=== PATIENT | female | born 1950 | race Caucasian/White ===

== ENCOUNTER 2017-04-02 12:59 | Outpatient (CLI) | payer MEDICARE ==
--- NOTE | 2017-04-02 16:18 | MMO ---
BILATERAL DIGITAL SCREENING MAMMOGRAMS: Date: 04/02/17 This patient's mammogram was interpreted with the assistance of computer-aided detection. Comparison made with exam of 11/28/13. FINDINGS: There are scattered fibroglandular densities with a few benign calcifications. No suspicious calcifi cations are seen. There is a questionable tiny nodular density in the left retroareolar breast on th e MLO view. IMPRESSION: BIRADS 0: Incomplete: Need Additional Imaging Evaluation and/or Prior Mammograms for Comparison Additional imaging is needed. Recommend direct ML and spot magnification views of the left breast fi nding. An ultrasound would be helpful. The facility will notify the patient of the need for additional imaging services. POS: [facility]
== END 2017-04-02 13:00 | disposition home or self-care (01) ==
LOC: MAMMO 12:59
PROVIDERS: ATTEND Family Medicine
DX: Z12.31 Encounter for screening mammogram for malignant neoplasm of breast (principal)
CPT/HCPCS: 77067; G0202

== ENCOUNTER 2017-04-05 09:49 | Outpatient (CLI) | payer MEDICARE ==
--- NOTE | 2017-04-05 11:22 | MMO ---
LEFT DIAGNOSTIC MAMMOGRAM: Date: 04/05/17 HISTORY: Abnormal mammogram of 04/02/17. FINDINGS: The tiny nodular density in the left retroareolar region appears stable since exam of 2013. IMPRESSION: BIRADS 2: Benign Finding(s) Return to annual mammographic screening. This study was interpreted in consultation with Dr. Jerzy Birch, who concurs. POS: [facility]
== END 2017-04-05 09:50 | disposition home or self-care (01) ==
LOC: MAMMO 09:49
PROVIDERS: ATTEND Family Medicine
DX: Z12.31 Encounter for screening mammogram for malignant neoplasm of breast (principal)
CPT/HCPCS: G0206-LT

== ENCOUNTER 2018-06-12 12:31 | Emergency (ER) | payer MEDICARE ==
--- NOTE | 2018-06-12 14:34 | RAD ---
LEFT KNEE 4 VIEWS: Date: 06/12/18 COMPARISON: None. HISTORY: Fall, trauma, pain. FINDINGS: There is mild medial compartment narrowing with osteophyte formation involving the medial femoral con dyle and medial tibial plateau. No knee joint effusion, displaced fracture, or evidence of dislocation. IMPRESSION: Degenerative joint disease. No acute fracture or dislocation. POS: [facility]
--- NOTE | 2018-06-12 14:48 | RAD ---
FOUR VIEWS LEFT ELBOW: Date: 06-12-18 Comparison: None. History: Fall, trauma, pain. FINDINGS: There is a fracture, dislocation of the left elbow. The proximal left ulna is dislocated posteriorly with respect to the distal humerus. There is an associated displaced comminuted obliquely oriented fr acture of the radial head. IMPRESSION: Fracture dislocation of the left elbow as detailed above. There is a comminuted and displaced radial head fracture. POS: [facility]
[2018-06-12] MEDS ORDERED: Fentanyl 100 MCG/2 ML VIAL ONE (15:07)
[2018-06-12] MEDS ORDERED: Ondansetron PF 4 MG/2 ML Vial ONE (15:07)
[2018-06-12] MEDS ORDERED: KETAMINE 100 MG/ML (5ML VIAL) ONE (15:24)
--- NOTE | 2018-06-12 16:59 | RAD ---
LEFT ELBOW FOUR VIEWS: 06/12/2018 3:01 p.m. HISTORY: Evaluate elbow following reduction. COMPARISON: 06/12/2018 at 12:48 p.m. FINDINGS: Positioning of the patient limits detailed assessment. Previously noted dislocation appears reduced on the lateral view. The radial head fracture is again noted, with mild volar displacement. IMPRESSION: Limited examination secondary to patient positioning. The lateral examination suggests interval redu ction. Displaced radial head fracture again noted. POS: [facility]
== END 2018-06-12 16:48 | disposition home or self-care (01) ==
LOC: ERS 12:31
DX: S52.002A Unspecified fracture of upper end of left ulna, initial encounter for closed fracture (principal); S52.122A Displaced fracture of head of left radius, initial encounter for closed fracture; E78.2 Mixed hyperlipidemia; I10 Essential (primary) hypertension; F41.9 Anxiety disorder, unspecified; Z79.899 Other long term (current) drug therapy; Z79.82 Long term (current) use of aspirin; W19.XXXA Unspecified fall, initial encounter
CPT/HCPCS: 24600; 96374; 96375; 99152; J2405; J3010

== ENCOUNTER 2018-06-18 10:02 | Observation (INO) | payer MEDICARE ==
[2018-06-17 16:12] VITALS: BMI 29.1
[2018-06-18] MEDS ORDERED: CEFAZOLIN 2 GM/50 ML BAG ONE (10:25)
[2018-06-18] MEDS ORDERED: Ondansetron PF 4 MG/2 ML Vial ONE (11:55)
[2018-06-18] MEDS ORDERED: PROPOFOL 200 MG/20 ML VIAL ONE (11:55)
[2018-06-18] MEDS ORDERED: Lidocaine 1% PF 5 ML VIAL ONE (11:55)
[2018-06-18] MEDS ORDERED: Dexamethasone 20 MG/5 ML VIAL ONE (11:55)
[2018-06-18] MEDS ORDERED: Fentanyl 100 MCG/2 ML VIAL ONE ×3 (12:15→14:20)
[2018-06-18] MEDS ORDERED: Meperidine HCl/PF 25 MG/ML VIAL SLOW IVP PRN (13:50)
[2018-06-18] MEDS ORDERED: Promethazine HCl 25 MG/ML VIAL IM/IV PRN (13:50)
[2018-06-18] MEDS ORDERED: HYDROmorphone 2 MG/ML VIAL SLOW IVP PRN (13:50)
--- NOTE | 2018-06-18 14:11 | RAD ---
RADIOGRAPH LEFT ELBOW 2 VIEWS: Date: 06/18/18 HISTORY: 67-year-old female with traumatic fracture of the radial head. COMPARISON: 06/12/18. FINDINGS: These are two small field of view fluoroscopic spot images obtained with C-arm in the OR. The previou sly demonstrated fractured radial head has been resected, and replaced by a metallic prosthesis with a short stem that reaches the proximal diaphysis of the radius. IMPRESSION: Status post arthroplasty of the capitelloradial articulation, with replacement of the radial head wit h a metallic prosthesis. POS: [facility]
[2018-06-18] MEDS ORDERED: Morphine 2 MG/ML SYRINGE IVP PRN (14:32)
[2018-06-18] MEDS ORDERED: traMADol HCl 50 MG TAB PO PRN (14:32)
[2018-06-18] MEDS ORDERED: Ondansetron PF 4 MG/2 ML Vial IV PRN (14:32)
[2018-06-18] MEDS ORDERED: HYDROmorphone 2 MG/ML VIAL ONE (14:33)
[2018-06-18] MEDS ORDERED: Non-Formulary Medication 1 EACH PO PRN (14:42)
[2018-06-18] MEDS ORDERED: CEFAZOLIN/Water 2 GM/20 ML SYRINGE SLOW IVP SCH (14:45)
[2018-06-18] MEDS ORDERED: [UNRECOGNIZED DRUG - REMARK] FS PRN (14:45)
[2018-06-18] MEDS ORDERED: Promethazine HCl 25 MG/ML VIAL ONE (15:31)
[2018-06-18] MEDS: Lisinopril 10 MG TAB PO SCH (20:15)
[2018-06-18] MEDS: CEFAZOLIN 2 GM/50 ML-DEXTROSE 2 GM in Premix Bag 1 BAG IVPB SCH (20:15)
[2018-06-18] MEDS: Metoprolol Tartrate 25 MG TAB PO SCH (20:16)
--- NOTE | 2018-06-18 22:17 | OP ---
DATE OF PROCEDURE: 06/18/2018 PREOPERATIVE DIAGNOSIS: Left radial head and neck fractures. POSTOPERATIVE DIAGNOSIS: Left radial head and neck fractures. PROCEDURE PERFORMED: Left radial head replacement. ANESTHESIA: General. TOURNIQUET TIME: 51 minutes at 250 mmHg. IMPLANTS: Atamasoft Proline system was used with a 20 mm +2 head and an 8.5 mm +2 stem. COMPLICATIONS: None. DRAINS: None. SPECIMEN: Radial head discarded. OUTCOME: Stable radial head replacement. INDICATIONS: The patient is a pleasant 67-year-old lady, status post ground level fall, landing on her outstretched left hand. The patient sustained a posterior elbow dislocation with a comminuted radial head and neck fracture. A successful reduction of the elbow dislocation was obtained in the emergency room; however, she had displacement of the radial head fragment. After discussion with the patient including risks and benefits, we decided to proceed to the operating room for open reduction and internal fixation versus radial head replacement. Informed consent has been obtained and I believe all questions were answered. DESCRIPTION OF PROCEDURE: The patient was brought to the operating room and a time-out was performed followed by induction of general anesthesia. Next, the patient was positioned supine on the OR table and then a sterile prep and drape was performed of left upper extremity. The limb was then exsanguinated with Esmarch bandage, tourniquet inflated to 250 mmHg. Next, a longitudinal incision was made beginning at the lateral epicondyle and heading distally along the posterolateral aspect of the forearm. After skin was sharply incised, dissection was carried down bluntly with incision of the underlying fascia. The interval between the extensor carpi ulnaris and the anconeus were then exploited and blunt dissection carried through this interval down to the joint capsule. The joint capsule was then incised in line with the skin incision revealing the underlying radial head fracture. The radial head was comminuted and significantly displaced more so than one would believe based on the plain films, there was an extruded fragment between the radius and ulna. These free fragments were removed, they were free of any soft tissue attachment. Given the degree of comminution as well as the marginal impaction of the fracture edges, at that point, it was decided to proceed with radial head replacement. As such, the fragments were removed from the elbow and then placed in the sizing jig to determine an appropriate radial head size. Next, an awl was used to obtain access to the intramedullary canal of the proximal ulna, this was followed by progressive T-handle reamers up to a size 8.5, it gave good fit and fill. Next, the size 8.5 reamer was left in place and then the end reamer was passed over this, found to further prepare the proximal ulna. This was then removed and a trial was performed with a 20 mm +2 head and 8.5 mm +2 stem. This gave good presybeterian of length of the radius and the radial head that could be reduced without excessive difficulty and it did not appear to overstuff the elbow. As such, once AP lateral C-arm images were obtained of the trial, it was decided to proceed with insertion of the final implant. The head and stem implants were then fastened to one another using the standard punch and then the head-neck construct was placed in the elbow with just some minor difficulty. Once positioned, the arm was brought through full supination, pronation, flexion and extension without instability. The wound was then thoroughly irrigated with normal saline using bulb syringe, then closed in layers, 0 Vicryl was used for the joint capsule, followed by 0 Vicryl for the fascial layer, 2-0 Vicryl subcutaneously and tameka for the skin. Adaptic gauze, Webril and a posterior fiberglass splint was then applied to the elbow and the tourniquet was let down after completion of dressing. The patient was then transferred to recovery room in stable condition. There were no complications. She tolerated the procedure well. Job ID: [id number]
[2018-06-18] MEDS: HYDROcodone/Acetaminophen 10/325 mg Tablet PO PRN (22:21)
[2018-06-19] MEDS: HYDROcodone/Acetaminophen 10/325 mg Tablet PO PRN ×2 (02:30→07:15)
[2018-06-19] MEDS: CEFAZOLIN 2 GM/50 ML-DEXTROSE 2 GM in Premix Bag 1 BAG IVPB SCH ×2 (02:30→10:26)
[2018-06-19] MEDS: Metoprolol Tartrate 25 MG TAB PO SCH (08:31)
[2018-06-19] MEDS: Lisinopril 10 MG TAB PO SCH (08:32)
[2018-06-19 08:49] VITALS: BP 126/73; TEMP 98.6
[2018-06-19] MEDS ORDERED: Atorvastatin Calcium 40 MG TAB PO SCH (09:00)
[2018-06-19] MEDS ORDERED: Furosemide 20 MG TAB PO SCH (09:00)
[2018-06-19] MEDS ORDERED: Aspirin 325 MG TAB PO SCH (09:00)
[2018-06-19] MEDS ORDERED: Escitalopram Oxalate 10 mg Tablet PO SCH (09:00)
== END 2018-06-19 11:09 | disposition home or self-care (01) ==
LOC: SDC 10:02 → SURG A 14:32
PROVIDERS: ADMIT Orthopaedic Surgery; ATTEND Orthopaedic Surgery
PROC: 0PRJ0JZ Replacement of Left Radius with Synthetic Substitute, Open Approach (ICD-10-PCS; principal; 2018-06-18)
DX: S52.122A Displaced fracture of head of left radius, initial encounter for closed fracture (principal); S52.132A Displaced fracture of neck of left radius, initial encounter for closed fracture; S53.105A Unspecified dislocation of left ulnohumeral joint, initial encounter; I25.10 Atherosclerotic heart disease of native coronary artery without angina pectoris; I10 Essential (primary) hypertension; E78.00 Pure hypercholesterolemia, unspecified; M19.90 Unspecified osteoarthritis, unspecified site; F32.9 Major depressive disorder, single episode, unspecified; Z79.899 Other long term (current) drug therapy; Z88.2 Allergy status to sulfonamides; W18.30XA Fall on same level, unspecified, initial encounter
CPT/HCPCS: 24366; 73080; 76000; 96365; 96366; 96374 ×2; C1713 ×2; G0378; J0131; J1100; J1170; J2001; J2405; J2550; J2704; J3010

== ENCOUNTER 2019-02-14 10:48 | Outpatient (CLI) | payer MEDICARE ==
--- NOTE | 2019-02-14 11:56 | MMO ---
Bilateral MAMMO Bilat Screen [facility]. CLINICAL HISTORY: Patient is 68 years old and is seen for screening. The patient has the following family history of breast cancer: paternal aunt, at age 60, malignant (generic) and cousin female, at age 60, malignant (generic). The patient has no personal history of cancer. VIEWS: The views performed were: bilateral craniocaudal with tomosynthesis and bilateral mediolateral oblique with tomosynthesis. FILMS COMPARED: The present examination has been compared to prior imaging studies performed at [facility] on 03/07/2010, 11/28/2013, 04/02/2017 and 04/06/2017. MAMMOGRAM FINDINGS: There are scattered fibroglandular densities. There are no suspicious masses, suspicious calcifications, or new areas of architectural distortion. IMPRESSION: THERE IS NO MAMMOGRAPHIC EVIDENCE OF MALIGNANCY. A ROUTINE FOLLOW-UP MAMMOGRAM IN 1 YEAR IS RECOMMENDED. THE RESULTS OF THIS EXAM WERE SENT TO THE PATIENT. ACR BI-RADS Category 1 - Negative MAMMOGRAPHY NOTE: 1. A negative mammogram report should not delay a biopsy if a dominant of clinically suspicious mass is present. 2. Approximately 10% to 15% of breast cancers are not detected by mammography. 3. Adenosis and dense breasts may obscure an underlying neoplasm. Reported by: MARK MILLER MD Electonically Signed: [id number]
== END 2019-02-14 10:49 | disposition home or self-care (01) ==
LOC: BICMAMMO 10:48
PROVIDERS: ATTEND Family Medicine
DX: Z12.31 Encounter for screening mammogram for malignant neoplasm of breast (principal); Z80.3 Family history of malignant neoplasm of breast
CPT/HCPCS: 77063; 77067

== ENCOUNTER 2019-03-10 11:02 | Inpatient (IN) | payer MEDICARE ==
[2019-03-10] MEDS ORDERED: Adacel (T-DAP) 0.5 ML SYRINGE ONE (11:29)
[2019-03-10] MEDS ORDERED: Morphine 10 MG/ML VIAL ONE (11:35)
[2019-03-10] MEDS ORDERED: Bupivacaine 0.5% 10 ML VIAL ONE (11:35)
[2019-03-10] MEDS ORDERED: Lidocaine 1% 20 ML MDV ONE (11:35)
--- NOTE | 2019-03-10 11:35 | RAD ---
XR Wrist 3 Rt View STANDARD: 03/10/2019 11:18 AM CLINICAL INDICATION: Fall, pain COMPARISON: None. FINDINGS: Fracture:Comminuted intra-articular distal radial fracture is present. There is associated overriding of distal radial fracture fragments, intra-articular gap of approximat matthew 4-5 mm, and two thirds shaft width anterior displacement of major distal fracture fragment. There is also a comminuted distal ulnar fracture centered at the ulnar styloid. Arthropathy:Scattered mild to moderate osteoarthritis of the right wrist and base of hand. Incidental findings:None of significance. IMPRESSION: 1. Comminuted, intraarticular distal radial fracture. 2. Comminuted distal ulnar fracture.
--- NOTE | 2019-03-10 12:09 | CT ---
CT BRAIN WITHOUT CONTRAST: Date: 03/10/19 INDICATION: History of fall with headache. COMPARISON: Prior CT of the brain dated 09/02/15. FINDINGS: There has been interval development of a very thin-like parafalcine subdural hematoma. The largest po rtion of the collection is seen along the anterior right falx on image 15 of series 2 measuring 4 mm. There are components of the subarachnoid hemorrhage involving sulci of the medial anterior right fro ntal lobe. There is encephalomalacia from the prior intraparenchymal hematoma involving the anterior right frontal lobe. No midline shift is evident. No hydrocephalus is noted. No additional region of h emorrhage is evident. The mastoid air cells are clear. There is an air fluid level in the right maxil eber sinus. The ethmoid air cells and sphenoid sinuses are clear. The frontal sinuses are under pneum atized. The skull is intact. IMPRESSION: 1. Acute parafalcine subdural hematoma with a subarachnoid component seen involving the medial right frontal lobe. There is no evidence of midline shift or focal intraparenchymal contusion. No hydrocep halus is demonstrated. 2. Remote area of encephalomalacia involving the anterior right frontal lobe. Findings called to Dr. Way at 1153 hours on 03/10/19. CODE CR. POS: [facility]
[2019-03-10 12:28] LABS: #Basophils 0.1 thou/uL (0.0-0.2); #Eosinphils 0.1 thou/uL (0.0-0.7); #Lymphocytes 1.7 thou/uL (1.20-3.40); #Monocytes 0.8 thou/uL (0.11-0.59); #Neutrophils 11.4 thou/uL (1.40-6.50); %Basophils 0.5 % (0.0-1.0); %Eosinophils 0.9 % (0.0-10.0); %Lymphocytes 12.2 % (21.0-51.0); %Monocytes 5.6 % (0.0-10.0); %Neutrophils 80.8 % (42.0-75.0); Hemoglobin 14.1 g/dL (12.0-16.0); Mean Corpuscular HGB CONC 33.8 g/dL (32.0-36.0); Mean Corpuscular Hemoglobin 30.7 pg (27.0-31.0); Mean Corpuscular Volume 90.9 fL (78.0-98.0); Mean Platelet Volume 8.2 fL (7.4-10.4); Platelet Count 288 thou/uL (130-400); RBC Distribution Width 11.6 % (11.5-14.5); White Blood Cell (WBC) Count 14.2 thou/uL (4.8-10.8)
[2019-03-10 12:34] LABS: PTT 25.1 SEC (22.9-36.1)
[2019-03-10 12:42] LABS: ALT (SGPT) 26 U/L (8-55); AST (SGOT) 24 U/L (5-34); Albumin 4.3 g/dL (3.4-4.8); Alkaline Phosphatase 95 U/L (40-110); Anion Gap 19 mmol/L (10-20); BUN (Urea Nitrogen) 19 mg/dL (9.8-20.1); Bilirubin, Total 0.5 mg/dL (0.2-1.2); Calc. Creatinine Clearance 0 mL/min (70-130); Calcium 9.6 mg/dL (7.8-10.44); Carbon Dioxide 22 mmol/L (23-31); Chloride 103 mmol/L (98-107); Estimated GFR-MDRD 60; Globulin 2.8 g/dL (2.4-3.5); Glucose 153 mg/dL (80-115); Potassium 5.1 mmol/L (3.5-5.1); Protein, Total 7.1 g/dL (6.0-8.3); Sodium 139 mmol/L (136-145)
--- NOTE | 2019-03-10 13:01 | RAD ---
RIGHT WRIST 3 VIEWS: CLINICAL HISTORY: Post reduction views. FINDINGS: Overlying splint has been placed. Redemonstration of distal radial and ulnar fractures with associate d comminution. There is improved alignment. There remains anterior displacement of the major distal radial fracture fragment. IMPRESSION: Splinted, distal radial and ulnar fractures. Transcribed Date/Time: 03/10/2019 2:05 PM
[2019-03-10 13:11] LABS: Magnesium 1.4 mg/dL (1.6-2.6); Phosphorus 3.5 mg/dL (2.3-4.7)
[2019-03-10] MEDS ORDERED: Bacitracin 1 PK ONE (13:40)
[2019-03-10] MEDS ORDERED: HYDROcodone/Acetaminophen 5/325 mg Tablet ONE (15:57)
[2019-03-10 20:22] VITALS: BMI 27.3
[2019-03-10] MEDS ORDERED: HYDROcodone/Acetaminophen 5/325 mg Tablet PO PRN ×2 (20:37)
[2019-03-10] MEDS ORDERED: Ondansetron ODT 4 MG TAB SL PRN (20:37)
[2019-03-10] MEDS ORDERED: Ondansetron PF 4 MG/2 ML Vial IVP PRN ×2 (20:37→20:40)
[2019-03-10] MEDS ORDERED: Insulin Regular 300 UNITS/3 ML VIAL SC PRN (20:40)
[2019-03-10] MEDS ORDERED: Dextrose 50% Abboject 50 ML SYRINGE SLOW IVP PRN (20:40)
[2019-03-10] MEDS ORDERED: hydrALAZINE 20 MG/ML VIAL SLOW IVP PRN (20:40)
[2019-03-10] MEDS ORDERED: Dextrose 5% in Water 1,000 ML IV PRN (20:40)
[2019-03-10] MEDS ORDERED: Dextrose 5 %-0.45 % NaCl 1,000 ML IV SCH (20:45)
[2019-03-10] MEDS ORDERED: Magnesium 2 GM/50 ML 2 GM in Premix Bag 1 BAG IVPB SCH (21:00)
[2019-03-10] MEDS: traMADol HCl 50 MG TAB PO PRN (21:52)
[2019-03-10] MEDS: Famotidine/PF 20 mg/2ml Vial SLOW IVP SCH (21:53)
[2019-03-10] MEDS: Metoprolol Tartrate 25 MG TAB PO SCH (21:53)
[2019-03-10] MEDS: Lisinopril 10 MG TAB PO SCH (21:53)
[2019-03-10] MEDS: Sodium Chloride 0.9% 1,000 ML IV SCH (21:54)
[2019-03-10] MEDS: Senokot S 8.6-50 MG TAB PO SCH (21:54)
[2019-03-11] MEDS: Acetaminophen 1,000 MG in Premix Bag 1 BAG IVPB SCH ×3 (00:18→14:02)
--- NOTE | 2019-03-11 01:11 | HP ---
CONSULTS: 1. Neurosurgery, Dr. Ruiz. 2. Orthopedic Surgery, Dr. Alfaro. HISTORY OF PRESENT ILLNESS: This is a 68-year-old lady, who was at home this morning working in her flower beds when she lost her balance while she was bending down causing her to fall forward onto her face. The patient states that she attempted to catch herself and also landed on her right wrist. The patient reported immediate facial pain and right arm pain. The patient denies any chest pain, dizziness, shortness of breath prior to falling. The patient does report a recent cold, in which she has been taking Tylenol. The patient denies any loss of consciousness, reports full recall of events. The patient's forest fire control officer is Dr. Tucker, the patient states she had an echocardiogram over a year ago. The patient was given a Tdap in the ER. REVIEW OF SYSTEMS: A 10-point review of systems is negative unless otherwise indicated in the above HPI. PAST MEDICAL HISTORY: GI bleed, brain bleed while on Coumadin for an aortic valve replacement, type 2 diabetes, hypertension, CVA, coronary artery disease. SURGICAL HISTORY: Aortic valve replacement in 2010 and also 2016, hysterectomy. SOCIAL HISTORY: Denies a history of tobacco use, reports occasional alcohol use once a month. Denies any illicit drug use. ALLERGIES: SULFA. CURRENT MEDICATIONS: 1. Atorvastatin 40 mg p.o. daily. 2. Escitalopram 10 mg daily. 3. Furosemide 20 mg daily. 4. [place] 10/325 p.r.n. 5. Metformin 500 mg q.p.m. with meals and 1000 mg p.o. q.a.m. with meals. 6. Omeprazole 20 mg p.o. q.a.m. 7. Aspirin 325 mg p.o. daily. 8. Lisinopril 10 mg b.i.d. 9. Metoprolol 25 mg p.o. b.i.d. PHYSICAL EXAMINATION: VITAL SIGNS: Blood pressure 146/78, pulse 63, SpO2 96% on room air, respirations 17, temperature 97.5. GENERAL: Well-appearing elderly female, lying in hospital bed, in no acute distress. HEENT: Head is normocephalic, abrasions to forehead, superficial small lacerations to forehead repaired with Dermabond, right cheek abrasion, ecchymoses to chin. Mucous membranes are moist, trachea midline. No cervical spine tenderness. Normal range of motion. No facial deformity. Pupils equal bilateral at 4 mm. RESPIRATORY: Equal chest rise and fall, respirations even nonlabored, bilateral breath sounds clear with no wheezing, rales, or rhonchi. CARDIAC: Regular rate, regular rhythm, positive click noted. No murmurs. ABDOMEN: Soft, nontender, nondistended, pelvis stable. EXTREMITIES: Moves all extremities, gross motor function intact, distal pulses 2+ in all extremities. Right upper extremity immobilized in a splint. NEUROLOGIC: GCS 15, cranial nerves intact, strength 5/5. LABORATORY DATA: WBC 14.2, RBC 4.60, hemoglobin 14.1, hematocrit 41.8, platelets 288. Sodium 139, potassium 5.1, chloride 103, BUN 19, creatinine 0.93, estimated GFR 60, glucose 153, calcium 9.6, phosphorus 3.5, magnesium 1.4. DIAGNOSTIC STUDIES: 1. Right wrist x-ray; comminuted intra-articular distal radial fracture and comminuted distal ulnar fracture. 2. Brain CT, acute parafalcine subdural hematoma with a subarachnoid component seen involving the medial right frontal lobe. No evidence of midline shift or focal intraparenchymal contusion. No hydrocephalus is demonstrated. ASSESSMENT: 1. Status post mechanical fall. 2. Right frontal subdural hematoma and subarachnoid. 3. Right distal radius and ulnar fracture, splinted. 4. Hypomagnesemia. 5. History of aortic valve replacement, gastrointestinal bleed, cerebrovascular accident, diabetes type 2, hypertension. PLAN: Admit to the intermediate care unit. The patient will be n.p.o. over midnight. Neurosurgery has evaluated the patient, pending recommendations. We will keep systolic blood pressure less than 150. Q.1 hour neuro checks. Repeat head CT in am. If mentation remained stable, the patient possibly going to the OR with Dr. Alfaro for repair of right wrist fracture. We will hold patient's aspirin. We will place the patient on mechanical DVT prophylaxis with SCDs. The plan was discussed with the patient who agrees. PT/OT. Job ID: [id number] MTDD
[2019-03-11] MEDS: traMADol HCl 50 MG TAB PO PRN (03:08)
[2019-03-11] MEDS: Sodium Chloride 0.9% 1,000 ML IV SCH ×2 (05:51→17:36)
[2019-03-11 06:01] LABS: #Eosinphils 0.1 thou/uL (0.0-0.7); #Lymphocytes 2.4 thou/uL (1.20-3.40); #Monocytes 0.7 thou/uL (0.11-0.59); %Basophils 0.5 % (0.0-1.0); %Eosinophils 1.2 % (0.0-10.0); %Lymphocytes 33.4 % (21.0-51.0); %Monocytes 9.6 % (0.0-10.0); %Neutrophils 55.3 % (42.0-75.0); Hemoglobin 12.6 g/dL (12.0-16.0); Mean Corpuscular HGB CONC 33.3 g/dL (32.0-36.0); Mean Corpuscular Volume 93.1 fL (78.0-98.0); Mean Platelet Volume 7.6 fL (7.4-10.4); Platelet Count 257 thou/uL (130-400); RBC Distribution Width 11.4 % (11.5-14.5); Red Blood Cell (RBC) Count 4.07 mill/uL (4.20-5.40); White Blood Cell (WBC) Count 7.2 thou/uL (4.8-10.8)
[2019-03-11 06:19] LABS: Phosphorus 3.3 mg/dL (2.3-4.7)
[2019-03-11 06:21] LABS: Anion Gap 11 mmol/L (10-20); BUN (Urea Nitrogen) 13 mg/dL (9.8-20.1); Calc. Creatinine Clearance 91 mL/min (70-130); Calcium 8.8 mg/dL (7.8-10.44); Carbon Dioxide 28 mmol/L (23-31); Chloride 102 mmol/L (98-107); Estimated GFR-MDRD 84; Glucose 106 mg/dL (80-115); Magnesium 2.2 mg/dL (1.6-2.6); Sodium 137 mmol/L (136-145)
--- NOTE | 2019-03-11 07:14 | CON ---
DATE OF CONSULTATION: HISTORY OF PRESENT ILLNESS: Ms. Crocker is a very pleasant 68-year-old woman who this morning was in her garden when she stepped out onto which she describes as an uneven surface. She lost her balance and fell, landing on her face and outstretched right arm. This resulted in a right wrist fracture, which upon my arrival at the emergency department is already splinted as well as some minor facial abrasions Of note Neurosurgery was consulted for CT scan of the head reveals subarachnoid hemorrhage in the bilateral frontal lobes as well as a small area of what appears to be parafalcine subdural hematoma which is rather small in nature and does not apply any significant mass effect to the underlying brain parenchyma. She is on a 325 mg aspirin daily as she has an artificial heart valve, but otherwise appears to be in very good state of health. PHYSICAL EXAMINATION: GENERAL: The patient is alert and oriented x4, she understands but feels the sequence of all events that happened this morning when I was present. HEENT: Pupils are equal, round, and reactive to light. Extraocular movements are intact. EXTREMITIES: Left upper extremity motor exam is normal. Right is deferred secondary to splinting for fracture. Bilateral lower extremity motor exam is normal. ASSESSMENT: Subarachnoid hemorrhage, status post fall with closed head injury. Neurosurgery's plan for this patient is one of just observation and repeat CT scan in the morning. She has an excellent prognosis, appears very well and would likely be the patient to be watched on the Med-Surg floor from our perspective, but we will defer to our colleagues in trauma who will be admitting. She will need to hold her aspirin for the next 72 hours and may restart. We will plan to follow up more than likely the next 3-6 weeks in our clinic. Job ID: [id number]
[2019-03-11] MEDS ORDERED: CEFAZOLIN 2 GM in Premix Bag 1 BAG IVPB SCH (07:45)
--- NOTE | 2019-03-11 07:51 | CT ---
PRELIMINARY REPORT/[facility]/EMERGENCY AFTER HOURS PROCEDURE: Addendum created by Tod Bellamy MD on 03/11/2019 6:20 AM Central Time ([place] & [place]) CT report dated 03/10/19 submitted. Anterior parafalcine subdural hematoma is apparently smaller, fito uring 2 mm or less, previously reported at 4 mm. Subarachnoid hemorrhage was previously reported. Addendum created by Tod Bellamy MD on 03/11/2019 6:02 AM Central Time ([place] & [place]) Minimal linear h yperdensity along the right frontal lobe encephalomalacia appears to be cortical suggestive of calcif ication. The findings were verbally communicated via telephone conference with HOUSTON MACHADO at 6:01 AM CDT on . Initial Report created on 03/11/2019 5:54 AM Central Time ([place] & [place]) PROCEDURE INFORMATION: Exam: CT Head without contrast Exam date and time: 03/11/2019 5:31 AM Clinical history: 68 years old, female; Injury or trauma; Fall; Follow-up exam; Blunt trauma (contusi ons or hematomas); Patient HX: F/u sdh, sah; Additional info: Unable to send prior images as they wer e done at a different facility, but report has been faxed. TECHNIQUE: Imaging protocol: Computed tomography of the head without contrast. COMPARISON: No relevant prior studies available. FINDINGS: Brain: Area of encephalomalacia in the right anterior frontal lobe. Minimal asymmetric hyperdense thi ckening of the anterior falx. Small amount of sulcal hyperdensity in the parafalcine frontal lobe on the right. Otherwise unremarkable. Ventricles: Unremarkable. Bones/joints: No acute fracture. Sinuses: Unremarkable. Mastoid air cells: Unremarkable. Soft tissues: Frontal scalp swelling. IMPRESSION: Small amount of right frontal parafalcine subarachnoid hemorrhage and possible thin anterior parafalc ine subdural hematoma. Thank you for allowing us to participate in the care of your patient. Dictated and Authenticated by: Tod Bellamy MD 03/11/2019 5:54 AM Central Time ([place] & [place]) FINAL REPORT EMERGENT AFTER HOURS CT OF THE BRAIN WITHOUT CONTRAST: FINDINGS/IMPRESSION: I agree with the findings and impression given in the preliminary report per [facility] physician. There is a stable amount of subarachnoid hemorrhage in the right frontal region. POS: [facility]
--- NOTE | 2019-03-11 07:55 | CON ---
DATE OF CONSULTATION: We were asked by Trauma in the emergency room to see patient. The patient was gardening yesterday when she unfortunately fell forward, striking her head on the ground, sustaining a small subarachnoid hemorrhage and then a fracture to the right wrist distal radius. is at bedside and the patient's state no loss of consciousness, but definite wrist pain and some bruising to the face. No other injuries. Her fingers move well. No numbness and tingling. She is splinted, which makes her wrist feel quite a bit better and she has had some ice and some mild pain medications. PAST MEDICAL HISTORY: Positive for GI bleed, head bleed while on Coumadin, aortic valve replacement x2, type 2 diabetes, hypertension, CVA, and coronary artery disease. PAST SURGICAL HISTORY: Valve replacement x2, hysterectomy. She has had left elbow surgery last year by Dr. Ferris. SOCIAL HISTORY: Resides at home with her . No alcohol, nicotine, or illicit drug use. CURRENT MEDICATIONS: 1. Atorvastatin. 2. Escitalopram. 3. Furosemide. 4. [place]. 5. Metformin. 6. Omeprazole. 7. Aspirin. 8. Lisinopril. 9. Metoprolol. ALLERGIES: SULFA. REVIEW OF SYSTEMS: Positive for a little bit of facial pain and some bruising. Right wrist pain, currently splinted, but denies any chest pain or shortness of breath. No bowel or bladder issues. The rest of the review of systems discussed are negative. PHYSICAL EXAMINATION: GENERAL: Well-nourished, well-developed female, alert, pleasant, in no acute distress. Speech clear. Affect pleasant. Answers questions appropriately. She is alert and oriented x3. is at bedside. HEENT: Face is symmetric, but she does have some bruising and abrasions to the face. Tongue is midline. NECK: Supple. Trachea midline. EXTREMITIES: Upper extremities; equal, size, shape, symmetry. Normal bulk and tone with the exception of the right upper extremity does show some bruising and little bit of swelling to the digits, but the wrist is splinted and immobilized. Sensations are intact on the right upper extremity. RESPIRATORY: No distress. Breathing about 16 respirations a minute. ASSESSMENT: 1. Fall with ensuing small subarachnoid hemorrhage. 2. Right distal radius fracture and ulnar styloid fracture. PLAN: The patient is cleared today by Trauma. We would like to get her set up for surgery this afternoon. We will do an ORIF of the right wrist. We went over the risks and benefits of surgery versus nonsurgical intervention. Her questions and concerns have been addressed and the patient and are amenable to go forth with surgery. We will get her on the surgery schedule, get her consented, antibiotic prior to surgery and this has all been explained to the patient. She is currently happy with the plan. Job ID: [id number] MTDD
--- NOTE | 2019-03-11 08:47 | RAD ---
SINGLE VIEW OF THE CHEST: COMPARISON: 11/30/2015. HISTORY: Preop radiograph. Fall. FINDINGS: A single view of the chest shows a normal size cardiomediastinal silhouette. The patient is status p ost sternotomy. There is no evidence of consolidation, mass, or pleural effusion. IMPRESSION: No evidence of acute cardiopulmonary disease. POS: [facility]
[2019-03-11] MEDS ORDERED: Escitalopram Oxalate 10 mg Tablet PO SCH (09:00)
[2019-03-11] MEDS ORDERED: Prevnar 13-Val Conj/PF 0.5 ML SYRINGE IM ONE (09:00)
[2019-03-11] MEDS: Metoprolol Tartrate 25 MG TAB PO SCH ×2 (09:36→21:17)
[2019-03-11] MEDS: Atorvastatin Calcium 40 MG TAB PO SCH (10:05)
[2019-03-11] MEDS: Famotidine/PF 20 mg/2ml Vial SLOW IVP SCH (10:05)
[2019-03-11] MEDS: Lisinopril 10 MG TAB PO SCH ×2 (10:05→21:18)
[2019-03-11] MEDS: Escitalopram Oxalate 10 mg Tablet PO SCH (10:05)
[2019-03-11] MEDS: Senokot S 8.6-50 MG TAB PO SCH ×2 (10:06→21:19)
[2019-03-11] MEDS ORDERED: Gabapentin 100 MG CAP PO PRN (10:24)
[2019-03-11] MEDS ORDERED: Midazolam HCl 2 mg/2 ml Vial ONE (12:22)
[2019-03-11] MEDS ORDERED: Fentanyl 100 MCG/2 ML VIAL ONE ×2 (12:22→14:38)
[2019-03-11] MEDS ORDERED: Ropivacaine 0.2% 550 ML 550 ML NERVE BLCK SCH (12:56)
[2019-03-11] MEDS ORDERED: traMADol HCl 50 MG TAB PO PRN ×2 (12:56)
[2019-03-11] MEDS ORDERED: Zolpidem Tartrate 5 MG TAB PO PRN (12:56)
[2019-03-11] MEDS ORDERED: Promethazine HCl 25 MG/ML VIAL IM PRN (12:56)
[2019-03-11] MEDS ORDERED: Ondansetron PF 4 MG/2 ML Vial IVP PRN (12:56)
[2019-03-11] MEDS ORDERED: HYDROcodone/Acetaminophen 10/325 mg Tablet PO PRN ×2 (12:56)
[2019-03-11] MEDS ORDERED: Fentanyl 100 MCG/2 ML VIAL SLOW IVP PRN (12:57)
--- NOTE | 2019-03-11 14:07 | PRG ---
DATE OF SERVICE: 03/11/2019 SUBJECTIVE: Ms. Crocker is a 68-year-old female, status post mechanical fall. She sustained a brain injury including subdural and subarachnoid hematoma that is stable. GCS has been 15. She also sustained right distal radius and ulnar fracture. The patient reports has been doing good, are minimal. She developed no fever or shortness of breath. Vital signs are stable. The patient has been on n.p.o. since midnight in preparation for surgery of right wrist fracture this morning via Orthopedic. OBJECTIVE: GENERAL: The patient is lying down in bed with no acute distress. VITAL SIGNS: Temperature 98.3, heart rate 67, blood pressure 138/59, O2 saturation 99% on room air. LUNGS: Clear bilaterally. HEART: Regular rate and rhythm. ABDOMEN: Soft and nondistended. EXTREMITIES: Right upper extremity is on splint, clean and intact. Neurovascularly intact x4. NEUROLOGIC: GCS 15. No focal neurology deficits. ASSESSMENT: 1. Status post mechanical fall. 2. Brain traumatic injury including subdural and subarachnoid hemorrhage, stable on repeat chest CT this morning. 3. Right distal radius and ulnar fracture, splinted. 4. The patient has a history of aortic valve replacement, pig valve; history of gastrointestinal bleed; cerebrovascular accident; diabetes; and hypertension. PLAN: Plan will be to continue supportive care. Continue pain control. The patient will go to the OR today for right wrist fracture fixation. The patient will be put on home medication. We will consider to put back Plavix and aspirin tomorrow for aortic valve replacement and DVT prophylaxis. The patient was seen and evaluated with Dr. Bello on round this morning. Job ID: [id number]
--- NOTE | 2019-03-11 15:38 | RAD ---
EXAM: XR Wrist Rt 2 View PROVIDED CLINICAL HISTORY: ORIF COMPARISON: 03/10/2019 FINDINGS: Interval volar plate and screw fixation of previously described distal radial fracture with resultant improved alignment. Ulnar styloid fracture redemonstrated. IMPRESSION: As above.
[2019-03-11] MEDS: Acetaminophen 500 MG TAB PO SCH ×2 (15:56→21:17)
[2019-03-11] MEDS: CEFAZOLIN 2 GM in Premix Bag 1 BAG IVPB SCH ×2 (15:56→21:18)
--- NOTE | 2019-03-11 18:47 | OP ---
DATE OF PROCEDURE: 03/11/2019 PROCEDURE PERFORMED: Open reduction and internal fixation of right distal radius. PREOPERATIVE DIAGNOSIS: Right distal radius fracture. POSTOPERATIVE DIAGNOSIS: Right distal radius fracture. COMPLICATIONS: None. ESTIMATED BLOOD LOSS: Minimal. ANESTHESIA: General. IMPLANT: Synthes volar distal radial plate was utilized. INDICATIONS: Ms. Crocker is a 68-year-old female, who fell and fractured her right distal radius. She had a displaced and shortened fracture. She was indicated for open reduction and internal fixation of the fracture to restore anatomic position and alignment. Risks have been reviewed in detail. She elected to proceed with the operation. DESCRIPTION OF PROCEDURE: Ms. Crocker was identified in the preoperative holding area. Her correct extremity was marked. She was carried to the operating room. She was positioned supine. General anesthesia was induced. A multidisciplinary time-out was performed. The right upper extremity was prepped and draped in sterile fashion. We began the procedure with a volar distal radial approach. We dissected down to the FCR tendon sheath, which was opened. We then exposed the underlying pronator quadratus. At this point, we reduced the bone back into its anatomic position. We held this with K-wires and applied our volar distal radial plate. We then placed multiple screws proximally as well as multiple distal locking screws. We checked x-rays for anatomic reduction. We then proceeded to fill the remaining screw holes. At this point, we took final images. We thoroughly irrigated. We then closed appropriately in layers. A sterile dressing was applied. Job ID: [id number]
--- NOTE | 2019-03-12 01:00 | PRG ---
DATE OF SERVICE: 03/12/2019 SUBJECTIVE: The patient is currently on the IMCU. She is awaiting a bed on the surgical floor. She is status post ground level fall, in which she sustained a traumatic brain injury, specifically subarachnoid hemorrhage and subdural hemorrhage. The patient underwent open reduction and internal fixation of the wrist fracture today. She tolerated that well. Postoperatively, she states that her pain is controlled. She is tolerating a diet, and she has been out of bed to go to the bathroom. PHYSICAL EXAMINATION: VITAL SIGNS: Stable. The patient is afebrile. GENERAL: The patient is resting comfortably in bed. She was able to get to 1500 on her incentive spirometry. [place] Coma Scale is 15. LUNGS: Clear to auscultation with good inspiratory and expiratory effort. HEART: Regular rate and rhythm. ABDOMEN: Soft, flat with active bowel sounds. EXTREMITIES: Neurovascularly intact with the exception of the right upper extremity that has a very well performing regional block still established. ASSESSMENT: 1. Status post ground level fall. 2. Subdural hematoma with subarachnoid component involving the medial right frontal lobe. 3. Status post open reduction and internal fixation of right distal radius fracture. PLAN: Plan will be to continue supportive care, physical and occupational therapy, and discuss placement tomorrow. Job ID: [id number]
[2019-03-12] MEDS: traMADol HCl 50 MG TAB PO PRN ×4 (05:12→23:06)
[2019-03-12] MEDS: Acetaminophen 500 MG TAB PO SCH ×3 (05:12→22:00)
[2019-03-12] MEDS ORDERED: Enoxaparin Sodium 40 MG/0.4 ML SYRINGE SC SCH (09:00)
[2019-03-12] MEDS ORDERED: FLU VACC TS2019-20(65YR UP)/PF 180 MCG/0.5 ML SYRINGE IM ONE (10:00)
[2019-03-12] MEDS: Escitalopram Oxalate 10 mg Tablet PO SCH (10:14)
[2019-03-12] MEDS: Atorvastatin Calcium 40 MG TAB PO SCH (10:15)
[2019-03-12] MEDS: Senokot S 8.6-50 MG TAB PO SCH ×2 (10:15→20:13)
[2019-03-12] MEDS: Lisinopril 10 MG TAB PO SCH ×2 (10:15→20:13)
[2019-03-12] MEDS: Metoprolol Tartrate 25 MG TAB PO SCH ×2 (10:15→20:13)
[2019-03-12 11:50] VITALS: BP 138/55
--- NOTE | 2019-03-12 12:40 | PRG ---
DATE OF SERVICE: 03/12/2019 SUBJECTIVE: Ms. Crocker is a 68-year-old female, status post mechanical fall. She sustained subdural and subarachnoid hemorrhage, stable. GCS has been 15. She also sustained right distal radius and ulnar fracture. She underwent ORIF of right wrist fracture yesterday. Postop, the patient reports doing good. Pain is well controlled. She developed no fever or shortness of breath. Vital signs have been stable. She has been transferred to surgical floor, awaiting for bed. OBJECTIVE: GENERAL: The patient is sitting on bed with no acute respiratory distress. Speech is normal and influent. VITAL SIGNS: Temperature 97.6, heart rate 68, respiratory rate is 16, O2 saturation 93% on room air, and blood pressure 135/58. LUNGS: Clear bilaterally. HEART: Regular rate and rhythm. ABDOMEN: Soft and nondistended. EXTREMITIES: Neurovascularly intact x4. Right wrist splint and dressing clean, clear, and intact. NEUROLOGIC: No focal neurology deficits. ASSESSMENT: 1. Status post mechanical fall. 2. Subdural subarachnoid hemorrhage, stable. 3. Right distal radius and ulnar fracture, postop day #1 open reduction and internal fixation of right distal radius and ulnar fracture. 4. History of aortic valve replacement, bio. Gastrointestinal bleed, cerebrovascular accident, diabetes, and hypertension. PLAN: Plan will be to continue supportive care. Continue pain control. Consult with Neurology. We will start the patient on b.i.d. tomorrow for DVT prophylaxis. We will await for physical therapy evaluation. The patient can be safe to go home or she needs to go to rehab. The patient was seen and evaluated with Dr. Le this morning on round. Job ID: [id number]
[2019-03-12] MEDS ORDERED: metFORMIN 500 MG TAB PO SCH (17:00)
--- NOTE | 2019-03-12 23:51 | PRG ---
DATE OF SERVICE: SUBJECTIVE: Patient remains in the IMCU. She has been waiting for more than a day now for a bed to open on the surgical floor. She has had no issues. She states that her pain is being controlled, though they had to make adjustments to her On-Q pump, but has been augmenting that with oral pain medications. She is tolerating a diet. She has been working with Physical and Occupational Therapy. Today after discussion with her primary care provider, she agreed to inpatient rehab. This is being worked on by the Case Management team. PHYSICAL EXAMINATION: VITAL SIGNS: Stable. Patient is afebrile. GENERAL: The patient is resting comfortably in bed. She is awake, alert, and oriented. [place] Coma Scale is 15. HEENT: Shows resolving contusions, otherwise unremarkable. RESPIRATORY: Nonlabored. EXTREMITIES: Neurovascularly intact x4. The patient is able to move her fingers on her right upper extremity, which is a change in improvement from last night and she has gross sensation returning. ASSESSMENT/PLAN: 1. Status post ground level fall. 2. Subdural hematoma with subarachnoid component involving the medial right frontal lobe, stable. 3. Status post open reduction internal fixation of right distal radius fracture, stable. PLAN: Plan will be to continue physical and occupational therapy and await final placement decision. Job ID: [id number]
[2019-03-13] MEDS: Acetaminophen 500 MG TAB PO SCH (06:19)
[2019-03-13] MEDS ORDERED: metFORMIN 500 MG TAB PO SCH (08:00)
[2019-03-13] MEDS: Atorvastatin Calcium 40 MG TAB PO SCH (08:50)
[2019-03-13] MEDS: Senokot S 8.6-50 MG TAB PO SCH (08:51)
[2019-03-13] MEDS: Lisinopril 10 MG TAB PO SCH (08:52)
[2019-03-13] MEDS: Escitalopram Oxalate 10 mg Tablet PO SCH (08:52)
[2019-03-13] MEDS: Metoprolol Tartrate 25 MG TAB PO SCH (08:53)
[2019-03-13] MEDS ORDERED: Aspirin 81 mg Enteric Coated Tablet PO SCH (09:00)
[2019-03-13 11:17] VITALS: TEMP 97.9
--- NOTE | 2019-03-13 13:14 | DIS ---
DATE OF ADMISSION: 03/10/2019 DATE OF DISCHARGE: 03/13/2019 ADMISSION DIAGNOSES: 1. Status post mechanical fall. 2. Subdural subarachnoid hemorrhage. 3. Right distal radius and ulnar fracture. 4. History of bio-aortic valve replacement.Gastrointestinal bleed. 5. History of Cerebrovascular accident. Diabetes. Hypertension. DISCHARGE DIAGNOSES: 1. Status post mechanical fall. 2. Subdural subarachnoid hemorrhage, stable, improved. 3. Right distal radius and ulnar fracture, status post open reduction and internal fixation of right distal radius and ulnar fracture. 4. History of bio-aortic valve replacement.Gastrointestinal bleed.Cerebrovascular accident. 5. History of Diabetes.Hypertension. CONSULTING PHYSICIAN: Andrey Alfaro, Orthopedic MD PROCEDURE: Open reduction and internal fixation of right radius and ulnar fracture. HOSPITAL COURSE: Ms. Crocker is a 68-year-old female, status post mechanical fall. She sustained subdural and subarachnoid hemorrhage, has been improving stable on repeat brain CT scan. Her neuro deficits are very minimal. GCS has been 15. She ambulate around the floor with normal daily function independently. She also sustained right wrist fracture. She underwent ORIF of right wrist fracture. Postop, the patient reported doing good in regard to pain control. She developed no fever or shortness of breath. Her vital signs have been stable. She able to work with PT/OT. PHYSICAL EXAMINATION: GENERAL: The patient is in bed with no acute respiratory distress. GCS 15. VITAL SIGNS: Temperature 97.6, heart rate 70, respiratory rate 16, O2 saturation 95% on room air, and blood pressure 130/50. LUNGS: Clear bilaterally. HEART: Regular rate and rhythm. ABDOMEN: Soft and nondistended. EXTREMITIES: Neurovascularly intact x4. Right wrist splint and dressing clean, clear, and intact. NEUROLOGIC: No focal neurology deficits. DISCHARGE DISPOSITION: Home. DISCHARGE CONDITION: Good. DISCHARGE INSTRUCTIONS: The patient is to take medication as directed. The patient is to follow up with Dr. Alfaro in 10 days. I have instruction on discontinue neuro block in 2 to 3 days. The patient is to see Dr. Bello as needed. DISCHARGE MEDICATIONS: Resume all of her home medications including, 1. Atorvastatin. 2. Aspirin 3. Lisinopril. 4. Metformin. 5. Metoprolol. 6. Omeprazole. 7. Tylenol. 8. Furosemide. 9. Tramadol Job ID: [id number] [facility]
== END 2019-03-13 12:22 | disposition home or self-care (01) | DRG 510 ==
LOC: SCSER 11:02 → SCSERHOLD 12:58 → IMCU/EMU 20:11
PROVIDERS: ADMIT Surgery; ATTEND Surgery
PROC: 0PSH04Z Reposition Right Radius with Internal Fixation Device, Open Approach (ICD-10-PCS; principal; 2019-03-11)
DX: S52.501A Unspecified fracture of the lower end of right radius, initial encounter for closed fracture (principal); S06.6X0A Traumatic subarachnoid hemorrhage without loss of consciousness, initial encounter; S06.5X0A Traumatic subdural hemorrhage without loss of consciousness, initial encounter; S52.611A Displaced fracture of right ulna styloid process, initial encounter for closed fracture; Y92.89 Other specified places as the place of occurrence of the external cause; Z95.2 Presence of prosthetic heart valve; E11.9 Type 2 diabetes mellitus without complications; I10 Essential (primary) hypertension; Z86.73 Personal history of transient ischemic attack (TIA), and cerebral infarction without residual deficits; I25.10 Atherosclerotic heart disease of native coronary artery without angina pectoris; Z90.710 Acquired absence of both cervix and uterus; Z79.899 Other long term (current) drug therapy; W01.198A Fall on same level from slipping, tripping and stumbling with subsequent striking against other object, initial encounter; Z88.2 Allergy status to sulfonamides
CPT/HCPCS: 12011; 25605; 36415; 36416; 70450; 71045; 76000; 80048; 80053; 82533; 83735; 84100; 85025; 85610; 85730; 86850; 86900; 86901; 90471; 90662; 90715; 93306; 96372; A4306; C1713; G0008; J0131; J0690; J2001; J2250; J2270; J2795; J3010; J3475; J3490; S0028

== ENCOUNTER 2019-04-18 14:07 | Outpatient (CLI) | payer MEDICARE ==
--- NOTE | 2019-04-18 14:35 | BD ---
DEXA BONE DENSITY STUDY: Date: 04/18/19 HISTORY: Postmenopausal. FINDINGS: Lumbar Spine: BMD (g/cm2) L1 0.874 T-Score: -1.1 L2 0.993 T-Score: -0.3 L3 1.096 T-Score: +0.1 L4 1.186 T-Score: +1.1 Total 1.051 T-Score: +0.0 Left Femoral Neck: 0.762 T-Score: -0.8 Total Femur: 0.921 T-Score: -0.2 IMPRESSION: Normal bone mineral density of the lumbar spine and left femoral neck. POS: ESTUARDO
== END 2019-04-18 14:08 | disposition home or self-care (01) ==
LOC: BICMAMMO 14:07
PROVIDERS: ATTEND Family Medicine
DX: M81.0 Age-related osteoporosis without current pathological fracture (principal); M85.88 Other specified disorders of bone density and structure, other site
CPT/HCPCS: 77080

== ENCOUNTER 2019-04-24 09:29 | Outpatient (CLI) | payer MEDICARE | END 2019-04-24 09:30 | disposition home or self-care (01) | LOC: DTY/OP 09:29 | PROVIDERS: ATTEND Family Medicine | DX: E11.65 Type 2 diabetes mellitus with hyperglycemia (principal) | CPT/HCPCS: 97802 ==

== ENCOUNTER 2020-06-01 08:06 | Outpatient (CLI) | payer MEDICARE ==
--- NOTE | 2020-06-01 09:05 | MMO ---
Bilateral MAMMO Bilat Screen [facility]. CLINICAL HISTORY: Patient is 69 years old and is seen for screening. The patient has the following family history of breast cancer: paternal aunt, at age 60, malignant (generic) and cousin female, at age 60, malignant (generic). The patient has no personal history of cancer. VIEWS: The views performed were: bilateral craniocaudal with tomosynthesis and bilateral mediolateral oblique with tomosynthesis. FILMS COMPARED: The present examination has been compared to prior imaging studies performed at [facility] on 11/28/2013, 04/02/2017, 04/06/2017 and 02/14/2019. This study has been interpreted with the assistance of computer-aided detection. MAMMOGRAM FINDINGS: There are scattered fibroglandular densities. There are no suspicious masses, suspicious calcifications, or new areas of architectural distortion. IMPRESSION: THERE IS NO MAMMOGRAPHIC EVIDENCE OF MALIGNANCY. A ROUTINE FOLLOW-UP MAMMOGRAM IN 1 YEAR IS RECOMMENDED. THE RESULTS OF THIS EXAM WERE SENT TO THE PATIENT. ACR BI-RADS Category 1 - Negative MAMMOGRAPHY NOTE: 1. A negative mammogram report should not delay a biopsy if a dominant of clinically suspicious mass is present. 2. Approximately 10% to 15% of breast cancers are not detected by mammography. 3. Adenosis and dense breasts may obscure an underlying neoplasm. Reported by: KEMAR CHARLES MD Electonically Signed: [id number]
== END 2020-06-01 08:07 | disposition home or self-care (01) ==
LOC: BICMAMMO 08:06
PROVIDERS: ATTEND Physician Assistant Medical
DX: Z12.31 Encounter for screening mammogram for malignant neoplasm of breast (principal); Z80.3 Family history of malignant neoplasm of breast
CPT/HCPCS: 77063; 77067

== ENCOUNTER 2020-06-23 16:14 | Outpatient (CLI) | payer MEDICARE ==
--- NOTE | 2020-06-23 16:50 | RAD ---
XR Hip Lt 2-3 View History: Hip pain Comparison: None. Findings: No acute fracture or malalignment. Faint curvilinear dense calcification projects over the left obturator ring superiorly. Moderate facet arthrosis L5-S1 and degenerative disc space height loss L4/L5 on the right. Impression: No acute fracture or malalignment. Low-grade degenerative change left hip.
== END 2020-06-23 16:15 | disposition home or self-care (01) ==
LOC: BICRAD 16:14
PROVIDERS: ATTEND Family Medicine
DX: M25.552 Pain in left hip (principal); M16.12 Unilateral primary osteoarthritis, left hip

== ENCOUNTER 2021-06-06 09:02 | Outpatient (CLI) | payer MEDICARE | END 2021-06-06 09:03 | disposition home or self-care (01) | LOC: BICMAMMO 09:02 | PROVIDERS: ATTEND Family Medicine | DX: Z12.31 Encounter for screening mammogram for malignant neoplasm of breast (principal); Z80.3 Family history of malignant neoplasm of breast | CPT/HCPCS: 77063; 77067 ==

== ENCOUNTER 2022-07-07 08:27 | Outpatient (CLI) | payer MEDICARE | END 2022-07-07 08:28 | disposition home or self-care (01) | LOC: BICMAMMO 08:27 | PROVIDERS: ATTEND Family Medicine | DX: Z12.31 Encounter for screening mammogram for malignant neoplasm of breast (principal); Z80.3 Family history of malignant neoplasm of breast | CPT/HCPCS: 77063; 77067 ==

== ENCOUNTER 2025-04-21 14:11 | Outpatient (CLI) | payer MEDICARE | END 2025-04-21 14:12 | disposition home or self-care (01) | LOC: BICMAMMO 14:11 | PROVIDERS: ATTEND Family Medicine | DX: Z12.31 Encounter for screening mammogram for malignant neoplasm of breast (principal); Z80.3 Family history of malignant neoplasm of breast | CPT/HCPCS: 77063; 77067 ==